=== PATIENT | male | born 1945 | race Caucasian/White ===

== ENCOUNTER → 2018-11-18 | Outpatient (CLI) | payer MEDICARE, OTHER ==
[2018-11-18 13:50] LABS: ABSOLUTE BASOPHILS # (AUTO) 0.1 10^3/uL (0.0-0.2); ABSOLUTE EOSINOPHILS # (AUTO) 0.3 10^3/uL (0.0-0.6); ABSOLUTE LYMPHOCYTES (AUTO) 1.5 10^3/uL (0.5-4.7); ABSOLUTE MONOCYTES (AUTO) 0.6 10^3/uL (0.1-1.4); ABSOLUTE NEUT (AUTO) 3.6 10^3/uL (1.7-8.2); BASOPHILS % (AUTO) 1.3 % (0-2); HEMATOCRIT 40.6 % (37.9-51.0); HEMOGLOBIN 13.5 g/dL (13.5-17.0); LYMPHOCYTES % (AUTO) 24.6 % (13-45); MEAN CORPUSCULAR HEMOGLOBIN 29.3 pg (27.0-33.4); MEAN CORPUSCULAR HGB CONC 33.4 g/dL (32.0-36.0); MEAN CORPUSCULAR VOLUME 88 fl (80-97); MONOCYTES % (AUTO) 9.6 % (3-13); PLATELET COUNT 366 10^3/uL (150-450); RED BLOOD COUNT 4.63 10^6/uL (4.35-5.55); SEGMENTED NEUTROPHILS % (AUTO) 59.5 % (42-78); TOTAL CELLS COUNTED % (AUTO) 100 %; WHITE BLOOD COUNT 6.1 10^3/uL (4.0-10.5)
[2018-11-18 14:09] LABS: ALANINE AMINOTRANSFERASE 27 U/L (21-72); ALBUMIN 4.2 g/dL (3.5-5.0); ALKALINE PHOSPHATASE 95 U/L (38-126); ANION GAP 13 (5-19); ASPARTATE AMINO TRANSFERASE 19 U/L (17-59); BILIRUBIN,DIRECT 0.4 mg/dL (0.0-0.4); BILIRUBIN,TOTAL 0.7 mg/dL (0.2-1.3); BLOOD UREA NITROGEN 29 mg/dL (7-20); CALCIUM 9.9 mg/dL (8.4-10.2); CARBON DIOXIDE 25 mmol/L (22-30); CHLORIDE 102 mmol/L (98-107); GLUCOSE 103 mg/dL (75-110); SODIUM 140.2 mmol/L (137-145); TOTAL PROTEIN 7.1 g/dL (6.3-8.2)
--- NOTE | 2018-11-18 20:13 | EKG REPORT ---
SEVERITY:- ABNORMAL ECG - SINUS RHYTHM RBBB AND LAFB : Confirmed by: Jesus Manuel Garcia MD 18-Nov-2018 20:12:39
== END ==
LOC: OD 12:57
PROVIDERS: ATTEND Orthopaedic Surgery Sports Medicine
DX: I10 Essential (primary) hypertension (principal); Z11.2 Encounter for screening for other bacterial diseases
CPT/HCPCS: 36415; 80053; 83036; 85025; 87070; 93005; 93010

== ENCOUNTER 2019-07-16 08:42 | Day surgery (SDC) | payer MEDICARE ==
[~2019-07-16 08:42] MED LIST: KETOROLAC TROMETHAMINE 0.45% 4 DROP/0.4 ML DROPERETTE OS PRN; MIDAZOLAM 2 MG/2 ML INJ ONE; TETRACAINE HCL 0.5% OPH SOLN 0.6 ML DROPERETTE OS PRN
[2019-07-16] MEDS: TROPICAMIDE 1% OPH SOLN 15 ML OS PRN ×3 (08:57→09:17)
[2019-07-16] MEDS: CYCLOPENTOLATE 0.2%/PHENYLEPHRINE 1% OPH SOLN 2 ML OS PRN ×3 (08:57→09:17)
[2019-07-16] MEDS: BESIFLOXACIN HCL 0.6% OPH SUSP 5 ML BOTTLE OS PRN ×4 (08:57→10:00)
[2019-07-16] MEDS: TETRACAINE HCL 0.5% OPH SOLN 4 ML OS PRN ×3 (08:58→09:38)
[2019-07-16] MEDS ORDERED: ONDANSETRON HCL INJ/PF 4 MG/2 ML SDV ONE (09:24)
[2019-07-16] MEDS ORDERED: MIDAZOLAM 2 MG/2 ML INJ ONE (09:25)
[2019-07-16] MEDS ORDERED: FENTANYL CITRATE INJ/PF 100 MCG/2 ML AMPUL ONE (09:25)
[2019-07-16] MEDS: CHONDR SU A NA/HYALUR INTRAOC KIT (SURGICARE) ONE ×2 (09:47)
[2019-07-16] MEDS: EPINEPHRINE INJ/PF 1 MG/1 ML AMPULE ONE ×2 (09:47)
[2019-07-16] MEDS: LIDOCAINE 1%/PHENYLEPHRINE 1.5% 1 ML VIAL ONE ×2 (09:47)
[2019-07-16] MEDS: DORZOLAMIDE HCL 2%/TIMOLOL MALEAT 0.5% OPH SOLN 10 ML OS PRN ×2 (10:00)
--- NOTE | 2019-07-16 15:24 | Operative Report ---
Operative Report-[facility] Operative Report: DATE OF SURGERY: July 16, 2019 PREOPERATIVE DIAGNOSIS: NUCLEAR CATARACT, LEFT EYE. POSTOPERATIVE DIAGNOSIS: NUCLEAR CATARACT, LEFT EYE. PROCEDURE PERFORMED: PHACOEMULSIFICATION WITH POSTERIOR CHAMBER INTRAOCULAR LENS IMPLANT, LEFT EYE. SURGEON: Vaughn Webb DO MEDICATIONS AND ANESTHESIA: Versed: IV Versed Tetracaine drops: 1 to 2 drops given as needed COMPLICATION: None INDICATIONS FOR SURGERY: Medical necessity: Best corrected visual acuity worse than 20/40 secondary to cataracts with impairment of ability to carry out needs or desired activities, blurred vision, visual distortion, reduced contrast sensitivity and/or glare with association functional impairment and supporting documentation/testing, and cataracts causing symptomatic impairment of visual functions not corrected with tolerable changes in glasses or contact lenses interfering with activities of daily life. PROCEDURE: Consent: The risks, benefits and alternatives of this procedures was discussed with the patient. The patient read and signed the consent forms, was identified and was seated in the exam chair. IOL: MX 60 E IOL Diopters: 18.5 Phacoemulsification with posterior chamber intraocular lens implant: The face was prepped with 5% povidone iodine solution, and a few drops of 5% povidone iodine solution was instilled into the inferior fornix. A non-fenestrated drape was placed over the eye and the lids were parted with the speculum. A paracentesis was made with a 15 degree blade, and 1% lidocaine MPF followed by viscoelastic was injected into the anterior chamber. A 2.4 mm metal micro- keratome was used to create a temporal clear corneal incision. A circular anterior capsulorrhexis was created, followed by hydro-dissection and hydro- delineation. The phacoemulsification hand piece was inserted and the nucleus was removed with the Phaco chop technique. The irrigation-aspiration hand piece was used to remove the residual cortex, and vacuum the posterior capsule. The capsular bag was inflated and viscoelastic and the above-mentioned IOL was injected into the eye with care to insert both leaning and trailing haptics in the capsular bag. The irrigation/aspiration hand piece was reinserted to remove residual viscoelastic from the capsular bag and anterior chamber. The corneal incision was hydrated, and anterior chamber was inflated with sterile BSS via the paracentesis site, and found to be watertight. Postop medication:1 drop of prednisolone into operative by followed by 1 drop of Cosopt into operative eye followed by 1 drop of Besivance intraoperative by Other:
== END 2019-07-16 10:51 | disposition home or self-care (01) ==
LOC: SC 08:42
PROVIDERS: ATTEND Ophthalmology
DX: H25.12 Age-related nuclear cataract, left eye (principal); E11.9 Type 2 diabetes mellitus without complications; I10 Essential (primary) hypertension; E78.00 Pure hypercholesterolemia, unspecified; Z79.84 Long term (current) use of oral hypoglycemic drugs; Z79.82 Long term (current) use of aspirin; Z79.4 Long term (current) use of insulin; K21.9 Gastro-esophageal reflux disease without esophagitis; E66.9 Obesity, unspecified
CPT/HCPCS: 82962; 66984; V2632; J2250; J3490 ×2; A9270; J0171; J3010; J2405; J2370; 142

== ENCOUNTER 2019-07-30 10:07 | Day surgery (SDC) | payer MEDICARE ==
[~2019-07-30 10:07] MED LIST changes: +CHONDR SU A NA/HYALUR INTRAOC KIT (SURGICARE) ONE; +EPINEPHRINE INJ/PF 1 MG/1 ML AMPULE ONE; +KETOROLAC TROMETHAMINE 0.45% 4 DROP/0.4 ML DROPERETTE OD PRN; -KETOROLAC TROMETHAMINE 0.45% 4 DROP/0.4 ML DROPERETTE OS PRN; +LIDOCAINE 1%/PHENYLEPHRINE 1.5% 1 ML VIAL ONE; -MIDAZOLAM 2 MG/2 ML INJ ONE; -TETRACAINE HCL 0.5% OPH SOLN 0.6 ML DROPERETTE OS PRN
[2019-07-30] MEDS: BESIFLOXACIN HCL 0.6% OPH SUSP 5 ML BOTTLE OD PRN ×4 (10:42→11:25)
[2019-07-30] MEDS: TETRACAINE HCL 0.5% OPH SOLN 4 ML OD PRN ×3 (10:42→11:08)
[2019-07-30] MEDS: CYCLOPENTOLATE 0.2%/PHENYLEPHRINE 1% OPH SOLN 2 ML OD PRN ×3 (10:42→11:03)
[2019-07-30] MEDS: TROPICAMIDE 1% OPH SOLN 15 ML OD PRN ×3 (10:42→11:04)
[2019-07-30] MEDS ORDERED: ONDANSETRON HCL INJ/PF 4 MG/2 ML SDV ONE (10:51)
[2019-07-30] MEDS ORDERED: MIDAZOLAM 2 MG/2 ML INJ ONE (10:51)
[2019-07-30] MEDS ORDERED: FENTANYL CITRATE INJ/PF 100 MCG/2 ML AMPUL ONE (10:52)
[2019-07-30] MEDS: DORZOLAMIDE HCL 2%/TIMOLOL MALEAT 0.5% OPH SOLN 10 ML OD PRN ×2 (11:25)
--- NOTE | 2019-07-30 14:28 | Operative Report ---
Operative Report-[facility] Operative Report: DATE OF SURGERY: July 30, 2019 PREOPERATIVE DIAGNOSIS: NUCLEAR CATARACT, RIGHT EYE. POSTOPERATIVE DIAGNOSIS: NUCLEAR CATARACT, RIGHT EYE. PROCEDURE PERFORMED: PHACOEMULSIFICATION WITH POSTERIOR CHAMBER INTRAOCULAR LENS IMPLANT, RIGHT EYE. SURGEON: Vaughn Webb DO MEDICATIONS AND ANESTHESIA: Versed: IV Versed Tetracaine drops: 1 to 2 drops given as needed COMPLICATION: None INDICATIONS FOR SURGERY: Medical necessity: Best corrected visual acuity worse than 20/40 secondary to cataracts with impairment of ability to carry out needs or desired activities, blurred vision, visual distortion, reduced contrast sensitivity and/or glare with association functional impairment and supporting documentation/testing, and cataracts causing symptomatic impairment of visual functions not corrected with tolerable changes in glasses or contact lenses interfering with activities of daily life. PROCEDURE: Consent: The risks, benefits and alternatives of this procedures was discussed with the patient. The patient read and signed the consent forms, was identified and was seated in the exam chair. IOL: MX 60 E 17.5 IOL Diopters: Phacoemulsification with posterior chamber intraocular lens implant: The face was prepped with 5% povidone iodine solution, and a few drops of 5% povidone iodine solution was instilled into the inferior fornix. A non-fenestrated drape was placed over the eye and the lids were parted with the speculum. A paracentesis was made with a 15 degree blade, and 1% lidocaine MPF followed by viscoelastic was injected into the anterior chamber. A 2.4 mm metal micro- keratome was used to create a temporal clear corneal incision. A circular anterior capsulorrhexis was created, followed by hydro-dissection and hydro- delineation. The phacoemulsification hand piece was inserted and the nucleus was removed with the Phaco chop technique. The irrigation-aspiration hand piece was used to remove the residual cortex, and vacuum the posterior capsule. The capsular bag was inflated and viscoelastic and the above-mentioned IOL was injected into the eye with care to insert both leaning and trailing haptics in the capsular bag. The irrigation/aspiration hand piece was reinserted to remove residual viscoelastic from the capsular bag and anterior chamber. The corneal incision was hydrated, and anterior chamber was inflated with sterile BSS via the paracentesis site, and found to be watertight. Postop medication: 1 drop of prednisolone into operative by followed by 1 drop of Cosopt into operative eye followed by 1 drop of Besivance intraoperative by other:
== END 2019-07-30 12:15 | disposition home or self-care (01) ==
LOC: SC 10:07
PROVIDERS: ATTEND Ophthalmology
DX: H25.11 Age-related nuclear cataract, right eye (principal); Z98.42 Cataract extraction status, left eye; Z79.82 Long term (current) use of aspirin; Z79.4 Long term (current) use of insulin; Z79.899 Other long term (current) drug therapy; E11.9 Type 2 diabetes mellitus without complications; I10 Essential (primary) hypertension; E78.00 Pure hypercholesterolemia, unspecified; Q60.0 Renal agenesis, unilateral; Z96.652 Presence of left artificial knee joint
CPT/HCPCS: 66984; 82962; 00142; V2632; J2250; J3490 ×2; A9270; J0171; J3010; J2405; J2370; 142